=== PATIENT | male | born 1950 | race Caucasian/White ===

== ENCOUNTER 2016-12-18 13:13 | Day surgery (SDC) | payer MEDICARE, BC ==
[2016-12-16 16:16] LABS: HEMATOCRIT 41.1 % (40.0-51.0); HEMOGLOBIN 14.6 g/dL (13.6-17.8)
[2016-12-16 16:27] LABS: BUN (BLOOD UREA NITROGEN) 23 MG/DL (6-23); CALCIUM, SERUM 8.9 MG/DL (8.5-10.4); CHLORIDE, SERUM 110 MMOL/L (96-112); CO2 (CARBON DIOXIDE) 29 MMOL/L (24-34); CREATININE 0.88 MG/DL (0.70-1.30); GFR AFRICAN AMERICAN 103 ML/MIN (>=60); GFR NON AFRICAN AMERICAN 89 ML/MIN (>=60); GLUCOSE, SERUM 98 MG/DL (60-99); POTASSIUM, SERUM 4.2 MMOL/L (3.5-5.3); SODIUM, SERUM 144 MMOL/L (135-148)
--- NOTE | ~2016-12-18 | OP ---
Record Of Operation [facility] [address] [place]. [address] NAME: RICHIE NEWSOME : 48 STATUS : [facility]#: [id number] AGE: 66 ADM/REG DATE : 12/18/16 MR#: [id number] REPORT SERV DATE: 01/13/17 DICTATED BY: KELI ZHANG DATE: 01/13/17 REPORT STATUS : Draft TRANSCRIBED BY: MODDavid DATE: 01/13/17 DATE OF PROCEDURE: 12/18/2016 PREOPERATIVE DIAGNOSIS: Right second digit osteomyelitis. POSTOPERATIVE DIAGNOSIS: Right second digit osteomyelitis. PROCEDURE: Right distal second digit amputation. ANESTHESIA: General and local anesthetic. ESTIMATED BLOOD LOSS: Minimal. COMPLICATION: None. INJECTABLES: Approximately 10 mL of 1:1 mixture of 1% Xylocaine and 0.5% Marcaine plain. MATERIALS: 4-0 nylon. CULTURES: Include aerobic, anaerobic, acid fast, fungal, and gram stain. PATHOLOGY: Includes second distal phalanx with proximal margin. PROCEDURE IN DETAIL: Under mild sedation, the patient was brought to the operating room, and placed in the operating table in supine position. Following general anesthesia, local anesthesia was obtained about the patient's right foot. Right foot, ankle, and lower leg were scrubbed, prepped, and draped in usual aseptic manner. Attention was directed to the procedure. Procedure #1 is right distal second digit partial amputation. Attention was directed to the distal tip of the right second digit, where the probing to bone ulceration was visualized. At this time, a fishmouth incision was made circumferentially around the second DIPJ. Sharp dissection was continued down to the level of the DIPJ, complete disarticulation ensued. At this time, deep cultures were taken. The distal aspect of the second digit was sent to pathology for evaluation and proximal margin was also sent. Pulse lavage ensued and full- thickness closure ensued with 4-0 nylon in an interrupted suture technique. A well-padded sterile dressing, and well-padded postoperative shoe was applied. The patient tolerated the procedure and anesthesia well, he was transferred to recovery room with vital signs stable. Vascular status intact to all toes. Following a period of postoperative monitoring, the patient will be discharged home on the following written and oral postoperative instructions. 1. Keep dressings clean, dry, and intact. 2. Partial weightbearing as instructed with walker and postoperative shoe. Elevate as directed. He will take medications as prescribed and will follow up with Dr. Zhang in 7 to 14 days. Record Of Operation [facility] [address] [place]. [address] NAME: RICHIE NEWSOME : 48 STATUS : [facility] PAT#: [id number] AGE: 66 ADM/REG DATE : 12/18/16 MR#: [id number] REPORT SERV DATE: 01/13/17 DICTATED BY: KELI ZHANG DATE: 01/13/17 REPORT STATUS : Draft TRANSCRIBED BY: HELGA DATE: 01/13/17 LIGIA/HELGA Peewee Zhang D.P.M. / [id number] CC: Alejandra Maurer M.D.
[~2016-12-18 13:13] MED LIST: AMARYL1 MG PO; ASA5GR PO; ASAB PO; ASABAYER PO; C1 PO; COREG6 PO; COZAAR100 MG PO; CRESTOR20 MG PO; ELIQUIS 5 MG TAB5 MG PO; GLUCOPHAGE1000 MG PO; HYZAAR 100/25 T1 TAB PO; JANUVIA100 MG PO; JANUVIA25 MG PO; LIPITOR40 PO; M-CLEAR WC PO; MONODOX100 MG PO; NATURA2 OPH; NORCO1 TA1 PO; NTG150 SL; SPIRO25 PO; SYN.05 PO; TESSALON200 MG PO; X5 PO; XANAX2 MG PO; Z100 PO
== END 2016-12-18 19:13 | disposition home or self-care (01) ==
LOC: SDC 13:13
PROVIDERS: Podiatrist Foot & Ankle Surgery
PROC: 0Y6R0Z3 Detachment at Right 2nd Toe, Low, Open Approach (ICD-10-PCS; principal; 2016-12-18 14:45)
DX: M86.8X7 Other osteomyelitis, ankle and foot (principal); M86.8X4 Other osteomyelitis, hand; I48.91 Unspecified atrial fibrillation; E11.9 Type 2 diabetes mellitus without complications; I25.10 Atherosclerotic heart disease of native coronary artery without angina pectoris; I11.0 Hypertensive heart disease with heart failure; I50.9 Heart failure, unspecified; G47.33 Obstructive sleep apnea (adult) (pediatric); Z79.899 Other long term (current) drug therapy
CPT/HCPCS: 80048; 82962; 85014; 85018; 87015; 87070; 87075; 87077; 87102; 87116; 87186; 87205; 88304; 88305; 88311; 93005; J0690; J2250; J2405; J3010